=== PATIENT | female | born 1985 | race Caucasian/White ===

== ENCOUNTER 2016-04-25 22:16 | Emergency (ER) | payer OTHER ==
[2016-04-25] MEDS ORDERED: Morphine INJ* 4 MG/ML 1 ML CARPUJECT IM ONE (22:47)
[2016-04-26] MEDS ORDERED: oxyCODONE TAB* 5 MG TAB PO ONE ×2 (00:45→00:46)
--- NOTE | 2016-04-26 00:55 | ED ---
London Mcguire Billy, scribed for Moises Mayberry MD on 04/25/16 at 2303 . Lower Extremity - HPI Summary HPI Summary: Patient is a 30 year-old female coming to [facility] after she tripped on the stairs and fell 3 steps. She states that she "felt" and "heard" her RLE "give out" under her. She c/o RLE numbness at this time. The ankle is swollen and painful to touch. Constant pain, 10/10. She is keeping the foot elevated and rested to mitigate pain. Pain worse with weightbearing. She has no other complaints. - History of Current Complaint Chief Complaint: EDExtremityLower Stated Complaint: FALL/LEG INJURY Time Seen by Provider: 04/25/16 22:49 Hx Obtained From: Patient Hx Last Menstrual Period: 01/13/16 Mechanism Of Injury: Fall From Height Of: - 3 steps Onset of Pain: Immediate Onset/Duration: Hours Severity Initially: Moderate Severity Currently: Moderate Pain Intensity: 10 Pain Scale Used: 0-10 Numeric Timing: Constant Location: Is Discrete @ - RLE Associated Signs And Symptoms: Positive: Swelling Aggravating Factor(s): Weight Bearing Alleviating Factor(s): Rest, Elevation Able to Bear Weight: No - Allergies/Home Medications Allergies/Adverse Reactions: Allergies Allergy/AdvReac Type Severity Reaction Status Date / Time Latex Allergy Hives Verified 07/08/15 10:12 Sulfamethoxazole Allergy Hives Verified 07/08/15 10:12 w/Trimethoprim [From Bactrim] PMH/Surg Hx/FS Hx/Imm Hx Endocrine/Hematology History: Denies: Hx Diabetes, Hx Thyroid Disease Cardiovascular History: Reports: Other Cardiovascular Problems/Disorders - MILD CARDIOMEGALY Denies: Hx Hypertension Respiratory History: Reports: Hx Pneumonia Denies: Hx Asthma, Hx Chronic Obstructive Pulmonary Disease (COPD) Comment Only: Other Respiratory Problems/Disorders - PNEUMONIA 5-16 GI History: Denies: Hx Ulcer Psychiatric History: Reports: Hx Depression - Surgical History Surgery Procedure, Year, and Place: 3C sections 2008,2011,2014 birthmark removed 1990 Infectious Disease History: No Infectious Disease History: Denies: Hx Clostridium Difficile, Hx Hepatitis, Hx Human Immunodeficiency Virus (HIV), Hx of Known/Suspected MRSA, Hx Shingles, Hx Tuberculosis, Hx Known/ Suspected VRE, Hx Known/Suspected VRSA, History Other Infectious Disease, Traveled Outside the [place] in Last 30 Days - Family History Known Family History: Positive: Cardiac Disease, Hypertension, Diabetes - Social History Alcohol Use: Occasionally Substance Use Type: Reports: None Smoking Status (MU): Light Every Day Tobacco Smoker Review of Systems Negative: Fever Positive: Arthralgia, Edema Positive: Numbness All Other Systems Reviewed And Are Negative: Yes Physical Exam Triage Information Reviewed: Yes Vital Signs On Initial Exam: Initial Vitals Temp Pulse Resp BP Pulse Ox 98.8 F 79 22 129/75 97 04/25/16 22:27 04/25/16 22:27 04/25/16 22:27 04/25/16 22:27 04/25/16 22:27 Vital Signs Reviewed: Yes Appearance: Positive: Well-Appearing, No Pain Distress Skin: Positive: Warm, Skin Color Reflects Adequate Perfusion, Dry Head/Face: Positive: Normal Head/Face Inspection Eyes: Positive: EOMI, NASIR Neck: Positive: Supple, Nontender Respiratory/Lung Sounds: Positive: Clear to Auscultation, Breath Sounds Present Cardiovascular: Positive: RRR, Pulses are Symmetrical in both Upper and Lower Extremities Abdomen Description: Positive: Nontender, Soft Musculoskeletal: Positive: Pain @ - Tenderness to the right distal tibia and fibula, Edema Right - Swelling to the distal tibia and fibula, Other - Knee is nontender Neurological: Positive: Normal, Sensory/Motor Intact, Alert, Oriented to Person Place, Time Psychiatric: Positive: Normal, Affect/Mood Appropriate Procedures - Splinting Location: RT LE Hand-Made Type: orthoglass Splint: STIRRUP AND POSTERIOR Pre-Proc Neuro Vasc Exam: normal Post-Proc Neuro Vasc Exam: normal Diagnostics - Vital Signs Vital Signs Temp Pulse Resp BP Pulse Ox 04/25/16 22:27 98.8 F 79 22 129/75 97 - Laboratory Lab Statement: Any lab studies that have been ordered have been reviewed, and results considered in the medical decision making process. - Radiology Lower Extremity XR Radiology Interpretation Completed By: Radiologist - See EMR* Ankle XR Radiology Interpretation Completed By: Radiologist - See EMR* Lower Extremity Course/Dx - Course Assessment/Plan: DISCUSSED WITH DR IBARRA. SPLINTED WITH STIRRUP AND POSTERIOR SPLINT. DISCHARGE HOME STABLE. - Diagnoses Provider Diagnoses: Tibia/fibula fracture, shaft - Physician Notifications Discussed Care of Patient With: Dr. Ibarra (orthopedics) @ 0002 Discharge - Discharge Plan Condition: Stable Disposition: HOME Prescriptions: oxyCODONE TAB* [Roxycodone TAB 5 mg*] 5 mg PO Q4H PRN #20 tab MDD 6 PRN Reason: Pain Patient Education Materials: Leg Fracture (ED) Referrals: [facility] [Outside] Judy Antoine PA [Primary Care Provider] - Venancio Ibarra MD [Medical Doctor] - Additional Instructions: FOLLOW UP WITH ORTHOPEDICS. CALL TODAY FOR FOLLOW UP. ELEVATE THE LEG. NO WEIGHT BEARING. RETURN TO THE EMERGENCY DEPARTMENT FOR ANY WORSENING OF YOUR CONDITION OR QUESTIONS OR CONCERNS. The documentation as recorded by the London starks Billy accurately reflects the service I personally performed and the decisions made by me, Moises Mayberry MD.
[2016-04-26 03:10] VITALS: BP 130/82
--- NOTE | 2016-04-26 08:09 | RAD ---
Indication: Pain post fall down stairs. History of autoimmune disease. Comparison: None. Technique: AP, mortise, and lateral views RIGHT ankle. AP and lateral views RIGHT lower leg. Report: Noncontrast spiral fracture through the junction of the distal diaphysis and distal metaphysis of the tibia with one cortex width lateral displacement and mild cephalocaudal override of the fracture fragments. Spiral fracture at the proximal diaphysis of the fibula with approximate one half bone width medial displacement and mild cephalocaudal override of the fracture fragments. Coronal oriented fracture at the posterior malleolus of the tibial plafond with only minimal cephalad displacement of the posterior fragment with approximate 1 mm articular surface incongruity at the tibial plafond resulting. Surrounding soft tissue swelling. Suggestion of small bone fragments at the level of the distal tibia fibula syndesmosis concerning for syndesmotic injury although there is no widening of the ankle mortise. Normal articular alignment throughout the lower leg and ankle. IMPRESSION: 1. Mildly displaced spiral fractures of the junction of the distal diaphysis and distal metaphysis of the tibia and proximal diaphysis of the fibula. 2. Suggestion of additional fracture at the level of the distal tibia fibula syndesmosis however there is no visible widening of the ankle mortise. 3. Coronally oriented fracture at the posterior malleolus of the tibial plafond and with only minimal articular surface incongruity resulting.
== END 2016-04-26 03:09 | disposition home or self-care (01) ==
LOC: ED 22:16
DX: S82.301A Unspecified fracture of lower end of right tibia, initial encounter for closed fracture (principal); S82.831A Other fracture of upper and lower end of right fibula, initial encounter for closed fracture; W10.9XXA Fall (on) (from) unspecified stairs and steps, initial encounter; Y93.9 Activity, unspecified; Y92.9 Unspecified place or not applicable; R60.0 Localized edema; F17.210 Nicotine dependence, cigarettes, uncomplicated
CPT/HCPCS: 96372; 99283; A9270-GY; J2270

== ENCOUNTER → 2016-04-29 13:53 | Day surgery (SDC) | payer OTHER ==
[~2016-04-29 13:53] MED LIST: Buffered Lidocaine 1% SYR 3ML* 3 ML/SYR SYRINGE INTRADERM ONE; Bupivacaine 0.5% SDV PF* 30 ML VIAL ONE; Dexamethasone IV* 4 MG/ML 1 ML (4 MG) ONE; Famotidine IV* 10 MG/ML 2 ML (20 mg) IV ONE; Famotidine IV* 10 MG/ML 2 ML (20 mg) ONE; KETAMINE HCL* 50 MG/ML 10 ML VIAL ONE; Midazolam* 1 MG/ML 5 ML VIAL (5 MG) ONE; Morphine INJ* 2 MG/ML 1 ML CARPUJECT IV PRN; PROCHLORPERAZINE INJ 5 MG/ML 2 ML VIAL IV PRN; Propofol* 10 MG/ML 20 ML BTL IV PUSH ONE; ceFAZolin 2 GM PREMIX (*) 2 GM/50 ML BAG IVPB ONE; fentaNYL* 50 MCG/ML 2 ML VIAL (100 MCG VIAL) IV PRN; fentaNYL* 50 MCG/ML 2 ML VIAL (100 MCG VIAL) ONE; oxyCODONE/Acetamin 5/325 MG* TAB PO PRN
--- NOTE | 2016-04-29 17:34 | RAD ---
INDICATION: ORIF RIGHT tibia. COMPARISON: April 25, 2016 radiographs. TECHNIQUE: 30.7 seconds fluoroscopy. FINDINGS: Spot images document placement of a proximally and distally locked IM duane across the distal diaphyseal fracture of the tibia. IMPRESSION: Procedural fluoroscopy. CPT II Codes: 6045F
[2016-04-29 18:46] VITALS: BP 125/81
--- NOTE | 2016-04-30 13:02 | OP ---
DATE OF OPERATION: 04/29/16 - [facility] DATE OF : 83 SURGEON: Venancio Ibarra MD [facility] COORDINATOR: KALEIGH Rehman ANESTHESIOLOGIST: Virgilio Casey MD ANESTHESIA: Spinal PRE-OP DIAGNOSIS: Right distal tibia fracture with posterior malleolar fragment. POST-OP DIAGNOSIS: Right distal tibia fracture with posterior malleolar fragment. OPERATIVE PROCEDURE: Intramedullary nailing, right tibia using an 8 x 285 mm Synthes nail with [id number] screw fixation of the posterior malleolar fragment. DESCRIPTION OF PROCEDURE: The patient was taken to the operating room, where a longitudinal incision was made at the knee, splitting the patellar tendon. We entered the proximal tibia with the reamer and then passed the guide pin down to the subchondral bone of the distal tibia. We over-reamed with 9.5 mm diameter and sized a 285 mm longitudinal nail. This was driven down to the distal tibia and a proximal dynamic screw placed. The distal screws were used for the anterior and the anterior oblique screws. This was to hold and fix the posterior malleolar fragment. X-rays intra-operatively showed that the nail was well placed as well as the [id number] screws. We then irrigated thoroughly closing the proximal patellar tendon with interrupted 0 Vicryl sutures, subcu for the subcutaneous tissue, and yuliet for the skin. The three smaller wounds for the screws were closed with interrupted nylon sutures. Plaster splint applied. [id number] #: [id number] MTDD
== END | disposition home or self-care (01) ==
LOC: OR 13:53
PROVIDERS: ATTEND Orthopaedic Surgery
DX: S82.202A Unspecified fracture of shaft of left tibia, initial encounter for closed fracture (principal); F17.210 Nicotine dependence, cigarettes, uncomplicated; X50.0XXA Overexertion from strenuous movement or load, initial encounter; Y92.009 Unspecified place in unspecified non-institutional (private) residence as the place of occurrence of the external cause
CPT/HCPCS: 76001; C1713; C1776; J0690; J1100; J2250; J2704; J3010